=== PATIENT | male | born 2000 | race Caucasian/White ===

== ENCOUNTER → 2021-03-12 | Outpatient (CLI) | payer OTHER | END | disposition home or self-care (01) | LOC: RAD 12:02 | PROVIDERS: ATTEND Chiropractor | DX: M47.813 Spondylosis without myelopathy or radiculopathy, cervicothoracic region (principal); M99.01 Segmental and somatic dysfunction of cervical region; M99.02 Segmental and somatic dysfunction of thoracic region; M99.03 Segmental and somatic dysfunction of lumbar region; M99.04 Segmental and somatic dysfunction of sacral region | CPT/HCPCS: 72040; 72072; 72100; 72170 ==